=== PATIENT | female | born 2005 | race Caucasian/White ===

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

== ENCOUNTER 2024-06-15 02:42 | Emergency (ER) | payer MEDICAID ==
[~2024-06-15] VITALS: Ht 165.1 cm; Wt 90.7 kg
[2024-06-15 02:43] VITALS: BP 138/89; PULSE 118; RESP 18; TEMP 97.5; O2SAT 97
[2024-06-15] MEDS: ACETAMINOPHEN EXTRA STRENGTH 500 MG TAB PO ONE (03:51)
[2024-06-15] MEDS: NACL 0.9% 1,000 ML IV ONE (03:51)
[2024-06-15 04:56] VITALS: BP 134/89; PULSE 110; RESP 17; TEMP 97.5; O2SAT 97
== END 2024-06-15 04:56 | disposition home or self-care (01) ==
LOC: MED 02:42
DX: G43.909 Migraine, unspecified, not intractable, without status migrainosus (principal); Z32.01 Encounter for pregnancy test, result positive; Z79.899 Other long term (current) drug therapy
CPT/HCPCS: 81025; 84703; 96360; 99283; J7030

== ENCOUNTER 2024-07-09 22:25 | Emergency (ER) | payer MEDICAID ==
[~2024-07-09] VITALS: Ht 165.1 cm; Wt 109.5 kg
[2024-07-09 22:39] VITALS: BP 137/80; PULSE 99; RESP 18; TEMP 98.6; O2SAT 99
[2024-07-10 00:11] LABS: BASOPHILS # (AUTO) 0.1 K/uL (0.00-0.22); BASOPHILS % (AUTO) 0.5 % (0.0-2.0); EOSINOPHILS # (AUTO) 0.1 K/uL (0-0.4); EOSINOPHILS % (AUTO) 0.6 % (0.0-4.0); HEMATOCRIT 39.7 % (36-48); HEMOGLOBIN 13.3 g/dL (12.0-16.0); LYMPHOCYTES # (AUTO) 4.4 K/uL (2.5-16.5); LYMPHOCYTES % (AUTO) 32.1 % (20.5-51.1); MEAN CORPUSCULAR HEMOGLOBIN 31 pg (27-31); MEAN CORPUSCULAR HGB CONC 34 g/dL (33-37); MEAN CORPUSCULAR VOLUME 91.1 fL (80-94); MONOCYTES # (AUTO) 0.8 K/uL (0.8-1.0); MONOCYTES % (AUTO) 5.5 % (1.7-9.3); NEUTROPHILS # (AUTO) 8.4 K/uL (1.8-7.7); NEUTROPHILS % (AUTO) 61.3 % (42.2-75.2); PLATELET COUNT (AUTO) 419 K/uL (140-450); RED BLOOD CELL COUNT(AUTO) 4.36 MIL/uL (4.20-5.40); RED CELL DISTRIBUTION WIDTH 13.3 % (11.6-13.7); WHITE BLOOD COUNT (AUTO) 13.7 K/uL (4.5-11.0)
[2024-07-10 00:12] LABS: APPEARANCE,URINE CLEAR (CLEAR); BILIRUBIN,URINE NEGATIVE (NEGATIVE); BLOOD, URINE NEGATIVE (NEGATIVE); COLOR,URINE YELLOW (YELLOW); LEUKOCYTE ESTERASE ,URINE NEGATIVE (NEGATIVE); NITRITE, URINE NEGATIVE (NEGATIVE); PH,URINE 5.5 (5.0-9.0); PROTEIN,URINE TRACE (NEGATIVE); UGLUCOSE NEGATIVE (NEGATIVE); UROBILINOGEN,URINE 0.2 EU/dL (0.2 - 1)
[2024-07-10] MEDS: ACETAMINOPHEN EXTRA STRENGTH 500 MG TAB PO ONE (00:53)
[2024-07-10] MEDS ORDERED: ACET500T99 PO (04:04)
[2024-07-10] MEDS ORDERED: DOXY1TCP PO (04:04)
[2024-07-10 04:22] VITALS: BP 106/65; PULSE 82; RESP 16; TEMP 98; O2SAT 99
== END 2024-07-10 04:22 | disposition home or self-care (01) ==
LOC: MED 22:25
DX: O20.0 Threatened abortion (principal); O99.351 Diseases of the nervous system complicating pregnancy, first trimester; R51.9 Headache, unspecified; O26.811 Pregnancy related exhaustion and fatigue, first trimester; R42 Dizziness and giddiness; Z3A.01 Less than 8 weeks gestation of pregnancy; Z79.899 Other long term (current) drug therapy
CPT/HCPCS: 36415; 76801; 81003; 81025; 84702; 85025; 86900; 86901; 99284